=== PATIENT | male | born 1955 | race Caucasian/White ===

== ENCOUNTER → 2016-08-17 | Outpatient (CLI) | payer OTHER ==
[~2016-08-17] MED LIST: ADVAIR 250/501 DISK IH; ASPIR 8181 M1 PO; CARTIA XT120 MG PO; COMBIVENT RESPIM4 GM IH; DELTASONE20 M1 PO; LEVAQUIN500 MG PO; LEVAQUIN750 MG PO; LEVOFLOXACIN750 MG PO; LIPITOR20 MG PO; LIPITOR40 MG PO; LISINOPRIL10 MG PO; LISINOPRIL20 MG PO; LITE COAT ASPI325 M1 PO; NICOTINE PATCH1 EAC2 TD; NOHOMEMEDS; PREDNISONE10 MG PO; PREDNISONE50 MG PO; PROVENTIL,2.5 MG/0.5 AEROSOL; SPIRIVA1 INHALATI IH; TUDORZA PRESS400 MCG IH; VENTOLIN HFA18 GM IH
[2016-08-17 09:03] LABS: HEMATOCRIT 41.5 % (38.0-50.0); MCH 31.5 PG (29.0-34.0); MCV 92.6 FL (86-99); MEAN PLAT.VOLUME 10.2 uM^3 (9.0-12.4); PLATELET COUNT 288 K/uL (156-360); RBC DIS.WIDTH-CV 12.4 % (11.8-14.6); RBC DIS.WIDTH-SD 41.9 % (39-53); RED BLOOD COUNT 4.48 M/uL (4.00-5.50)
[2016-08-17 09:21] LABS: PROTHROMBIN TIME 9.9 (9.2-11.2); PTT 27.9 (25-32)
== END | disposition home or self-care (01) ==
LOC: OPR 08:27 → EDSTATUS 09:00 → OPR 09:00
PROVIDERS: Internal Medicine Pulmonary Disease
PROC: 0BBC3ZX Excision of Right Upper Lung Lobe, Percutaneous Approach, Diagnostic (ICD-10-PCS; principal; 2016-08-17)
DX: R91.8 Other nonspecific abnormal finding of lung field (principal); Z87.891 Personal history of nicotine dependence; Z79.82 Long term (current) use of aspirin
CPT/HCPCS: 71010; 77012; 85027; 85610; 85730; 88305; 88312; J3010

== ENCOUNTER 2016-08-20 19:17 | Emergency (ER) | payer OTHER ==
[~2016-08-20] VITALS: Ht 154.9 cm; Wt 52.8 kg
[~2016-08-20 19:17] MED LIST changes: -LEVAQUIN500 MG PO
[2016-08-20 20:01] LABS: HEMATOCRIT 39.1 % (38.0-50.0); MCH 30.9 PG (29.0-34.0); MCHC 34.3 G/DL (30.0-36.0); MCV 90.3 FL (86-99); MEAN PLAT.VOLUME 9.6 uM^3 (9.0-12.4); PLATELET COUNT 311 K/uL (156-360); RBC DIS.WIDTH-CV 11.8 % (11.8-14.6); RBC DIS.WIDTH-SD 37.8 % (39-53); RED BLOOD COUNT 4.33 M/uL (4.00-5.50); WHITE BLOOD COUNT 8.8 K/uL (4.1-10.2)
[2016-08-20 20:12] LABS: CHLORIDE 101 mEq/L (99-109); POTASSIUM 4.7 mEq/L (3.7-5.4); SODIUM 136 mEq/L (136-147)
[2016-08-20 20:14] LABS: GLUCOSE 94 mg/dL (70-99)
[2016-08-20 20:15] LABS: ANION GAP 8 MEQ/L (2-14)
[2016-08-20 20:18] LABS: GFR ESTIMATE (CALCULATED) > 59 mL/min/; UREA NITROGEN (BUN) 16 mg/dL (9-23)
[2016-08-20 21:38] LABS: TROP-I INTERPRETATION NEGATIVE; TROPONIN-I < 0.01 ng/mL (0.0-0.30)
[2016-08-20 22:04] LABS: D-DIMER ELISA 0.24 mg/L FEU (< 0.57)
[2016-08-21] MEDS ORDERED: LEVAQUIN500 MG PO (00:23)
[2016-08-21 00:48] LABS: TROP-I INTERPRETATION NEGATIVE; TROPONIN-I < 0.01 ng/mL (0.0-0.30)
[2016-08-21 01:02] VITALS: BP 124/78
== END 2016-08-21 01:03 | disposition home or self-care (01) ==
LOC: EME 19:17
PROVIDERS: Emergency Medicine
DX: J44.1 Chronic obstructive pulmonary disease with (acute) exacerbation (principal); M25.511 Pain in right shoulder; Z99.81 Dependence on supplemental oxygen; I10 Essential (primary) hypertension; E78.5 Hyperlipidemia, unspecified; Z87.891 Personal history of nicotine dependence; Z79.82 Long term (current) use of aspirin
CPT/HCPCS: 71020; 80048; 84484; 85027; 85379; 93005; 94640; 99281; 99285; J1100